=== PATIENT | female | born 1990 ===

== ENCOUNTER 2019-03-21 18:59 | Emergency (ER) | payer MEDICAID ==
[~2019-03-21] VITALS: Ht 157.5 cm; Wt 45.1 kg
[2019-03-21 19:12] VITALS: BP 114/71
== END 2019-03-21 20:40 | disposition home or self-care (01) ==
LOC: ER 18:59
DX: S00.12XA Contusion of left eyelid and periocular area, initial encounter (principal); S00.11XA Contusion of right eyelid and periocular area, initial encounter; J34.89 Other specified disorders of nose and nasal sinuses; X58.XXXA Exposure to other specified factors, initial encounter; Y93.89 Activity, other specified; Y92.89 Other specified places as the place of occurrence of the external cause; Y99.8 Other external cause status
CPT/HCPCS: 99281